=== PATIENT | female | born 2000 | race Caucasian/White ===

== ENCOUNTER 2024-02-20 21:30 | Emergency (ER) | payer OTHER ==
[~2024-02-20] VITALS: Ht 162.6 cm; Wt 70.8 kg
[2024-02-20 21:45] VITALS: BP 109/82; PULSE 81; RESP 16; TEMP 97.8; O2SAT 99
[2024-02-20 22:44] VITALS: BP 109/82; PULSE 81; RESP 16; TEMP 97.8; O2SAT 99
[2024-02-20] MEDS: PROCHLORPERAZINE 10 MG/2 ML VIAL IM ONE (23:01)
[2024-02-20] MEDS: KETOROLAC 60 MG/2 ML VIAL IM ONE (23:02)
[2024-02-21] MEDS ORDERED: RIZA10TA88 PO (00:04)
== END 2024-02-21 00:10 | disposition home or self-care (01) ==
LOC: MED 21:30
DX: G43.909 Migraine, unspecified, not intractable, without status migrainosus (principal); F41.9 Anxiety disorder, unspecified; F32.9 Major depressive disorder, single episode, unspecified; Z79.899 Other long term (current) drug therapy
CPT/HCPCS: 81025; 96372; 99284; J0780; J1885